=== PATIENT | male | born 1955 | race Caucasian/White ===

== ENCOUNTER 2017-06-10 17:07 | Inpatient (IN) ==
[2017-06-10] MEDS ORDERED: ALBUTEROL/IPRATROPIUM 3 ML NEB RESP TX STA (18:29)
[2017-06-10 19:32] LABS: Calcium 8.9 MG/DL (8.5-10.1); Osmolality,Calculated 278.4 MOS/KG (273-304); Potassium 2.6 MMOL/L (3.5-5.1)
[2017-06-10] MEDS ORDERED: ACETAMINOPHEN 500 MG TABLET PO STA (19:47)
[2017-06-10 19:48] LABS: Basophils # 0.1 10*3/uL (0.0-0.2); Basophils % 0.5 % (0.0-0.8); Eosinophils # 0.1 10*3/uL (0.0-0.87); Eosinophils % 0.4 % (0.00-10.9); Hematocrit 39.9 VOL% (42.0-52.0); Hemoglobin 13.9 GM/DL (14.0-18.0); Immature Granulocytes % 0.5 %; Immature Granulocytes Absolute 0.06 #; Lymphocytes % 16.9 % (21.2-54.2); Mean Corpuscular HGB Conc 34.8 GM/DL (32-36); Mean Corpuscular Hemoglobin 35 PG (27-34); Mean Corpuscular Volume 101.3 FL (87-102); Mean Platelet Volume 10.9 FL (9.6-12.0); Monocytes # 1.4 10*3/uL (0.11-0.8); Monocytes % 11.9 % (1.7-12.7); NRBC # 0.02 10*3/uL; Neutrophils # 8.4 10*3/uL (1.4-7.4); Neutrophils % 69.8 % (38.7-73.9); Platelet Count 228 T/CUMM (130-400); Red Blood Count 3.94 MC/CUMM (3.8-5.5); Red Cell Distribution Width 13.2 % (9.3-17.3); White Blood Count 12.1 T/CUMM (4-12)
[2017-06-10] MEDS ORDERED: ACETAMINOPHEN 500 MG TABLET ONE (19:49)
[2017-06-10] MEDS ORDERED: LEVOFLOXACIN INJ 750 MG in PREMIX 1 EACH IV STA (20:26)
[2017-06-10] MEDS ORDERED: LEVOFLOXACIN INJ 150 ML IV ONE (20:32)
[2017-06-10] MEDS ORDERED: ONDANSETRON 4 MG/2 ML VIAL IV PRN (20:52)
[2017-06-10] MEDS ORDERED: ACETAMINOPHEN 325 MG TABLET PO PRN (20:52)
[2017-06-10] MEDS ORDERED: ALBUTEROL 2.5 MG/3 ML NEB RESP TX PRN (20:52)
[2017-06-10] MEDS ORDERED: POTASSIUM CHLORIDE 20 MEQ TABLET PO ONE (22:00)
[2017-06-10] MEDS: methylPREDNISolone SOD SUC 40 MG/1 ML VIAL IV SCH (22:17)
[2017-06-10] MEDS: ENOXAPARIN 40 MG/0.4 ML SYRINGE SUBCUT SCH (22:19)
[2017-06-10] MEDS: BUDESONIDE/FORMOTEROL 160-4.5 INHALER 6 GM INH SCH (22:19)
[2017-06-10] MEDS: IBUPROFEN 800 MG TABLET PO PRN (23:40)
[2017-06-10] MEDS: ZALEPLON 5 MG CAPSULE PO PRN (23:40)
[2017-06-11] MEDS: ALBUTEROL/IPRATROPIUM 3 ML NEB RESP TX SCH ×4 (00:25→20:04)
[2017-06-11 05:42] LABS: Basophils % 0.3 % (0.0-0.8); Hematocrit 39.9 VOL% (42.0-52.0); Immature Granulocytes % 0.6 %; Immature Granulocytes Absolute 0.07 #; Lymphocytes # 1.2 10*3/uL (1.4-4.0); Mean Corpuscular HGB Conc 35.1 GM/DL (32-36); Mean Corpuscular Hemoglobin 35 PG (27-34); Mean Corpuscular Volume 100.8 FL (87-102); Mean Platelet Volume 10.3 FL (9.6-12.0); Monocytes # 0.4 10*3/uL (0.11-0.8); Monocytes % 3.4 % (1.7-12.7); Neutrophils # 9.3 10*3/uL (1.4-7.4); Neutrophils % 84.7 % (38.7-73.9); Platelet Count 212 T/CUMM (130-400); Red Blood Count 3.96 MC/CUMM (3.8-5.5); Red Cell Distribution Width 13.3 % (9.3-17.3)
[2017-06-11] MEDS: methylPREDNISolone SOD SUC 40 MG/1 ML VIAL IV SCH ×3 (05:50→20:45)
[2017-06-11 06:16] LABS: Calcium 8.8 MG/DL (8.5-10.1); Osmolality,Calculated 284.1 MOS/KG (273-304); Potassium 3.1 MMOL/L (3.5-5.1)
[2017-06-11] MEDS: POTASSIUM CHLORIDE 20 MEQ TABLET PO SCH ×3 (08:50→20:44)
[2017-06-11] MEDS: PANTOPRAZOLE 40 MG TABLET PO SCH (08:50)
[2017-06-11] MEDS: BUDESONIDE/FORMOTEROL 160-4.5 INHALER 6 GM INH SCH ×2 (08:50→20:44)
[2017-06-11] MEDS: IBUPROFEN 800 MG TABLET PO PRN ×2 (08:55→23:11)
[2017-06-11] MEDS: ARIPiprazole 10 MG TABLET PO SCH (14:41)
[2017-06-11] MEDS: ENOXAPARIN 40 MG/0.4 ML SYRINGE SUBCUT SCH (20:44)
[2017-06-11] MEDS ORDERED: FLUTICASONE/SALMETEROL 500-50 DISKUS 14 DOSE INH SCH (21:00)
[2017-06-11] MEDS: LEVOFLOXACIN INJ 750 MG in PREMIX 1 EACH IV SCH (21:52)
[2017-06-11] MEDS: ZALEPLON 5 MG CAPSULE PO PRN (23:11)
[2017-06-12] MEDS: ALBUTEROL/IPRATROPIUM 3 ML NEB RESP TX SCH ×4 (00:54→19:56)
[2017-06-12] MEDS: methylPREDNISolone SOD SUC 40 MG/1 ML VIAL IV SCH (04:00)
[2017-06-12] MEDS: IBUPROFEN 800 MG TABLET PO PRN ×3 (05:33→23:35)
[2017-06-12] MEDS: ARIPiprazole 10 MG TABLET PO SCH (08:22)
[2017-06-12] MEDS: POTASSIUM CHLORIDE 20 MEQ TABLET PO SCH ×3 (08:22→22:08)
[2017-06-12] MEDS: PANTOPRAZOLE 40 MG TABLET PO SCH (08:22)
[2017-06-12] MEDS: amLODIPine 5 MG TABLET PO SCH (08:22)
[2017-06-12] MEDS: FLUoxetine 20 MG CAPSULE PO SCH (08:22)
[2017-06-12] MEDS: BUDESONIDE/FORMOTEROL 160-4.5 INHALER 6 GM INH SCH ×2 (08:23→22:09)
[2017-06-12] MEDS ORDERED: REXULTI 2MG PO SCH (09:00)
[2017-06-12] MEDS ORDERED: methylPREDNISolone SOD SUC 40 MG/1 ML VIAL IV SCH (21:00)
[2017-06-12] MEDS: LEVOFLOXACIN INJ 750 MG in PREMIX 1 EACH IV SCH (22:07)
[2017-06-12] MEDS: ENOXAPARIN 40 MG/0.4 ML SYRINGE SUBCUT SCH (22:09)
[2017-06-12] MEDS: ZALEPLON 5 MG CAPSULE PO PRN (23:37)
[2017-06-13] MEDS: ALBUTEROL/IPRATROPIUM 3 ML NEB RESP TX SCH ×4 (01:06→19:26)
[2017-06-13] MEDS: DORNASE ALFA 2.5 MG/2.5 ML VIAL RESP TX SCH ×2 (07:55→19:26)
[2017-06-13] MEDS: PANTOPRAZOLE 40 MG TABLET PO SCH (08:55)
[2017-06-13] MEDS: POTASSIUM CHLORIDE 20 MEQ TABLET PO SCH ×4 (08:55→22:10)
[2017-06-13] MEDS: IBUPROFEN 800 MG TABLET PO PRN ×2 (08:55→22:14)
[2017-06-13] MEDS: FLUoxetine 20 MG CAPSULE PO SCH (08:55)
[2017-06-13] MEDS: amLODIPine 5 MG TABLET PO SCH (08:55)
[2017-06-13] MEDS: ARIPiprazole 10 MG TABLET PO SCH (08:57)
[2017-06-13] MEDS: BUDESONIDE/FORMOTEROL 160-4.5 INHALER 6 GM INH SCH ×2 (08:58→22:08)
[2017-06-13] MEDS: LISINOPRIL 10 MG TABLET PO SCH (10:16)
[2017-06-13] MEDS ORDERED: methylPREDNISolone SOD SUC 40 MG/1 ML VIAL IV SCH (21:00)
[2017-06-13] MEDS: LEVOFLOXACIN INJ 750 MG in PREMIX 1 EACH IV SCH (22:06)
[2017-06-13] MEDS: ZALEPLON 5 MG CAPSULE PO PRN (22:07)
[2017-06-13] MEDS: ENOXAPARIN 40 MG/0.4 ML SYRINGE SUBCUT SCH (22:11)
[2017-06-14] MEDS: ALBUTEROL/IPRATROPIUM 3 ML NEB RESP TX SCH ×3 (00:08→13:30)
[2017-06-14 05:54] LABS: Basophils % 0.3 % (0.0-0.8); Hematocrit 42.5 VOL% (42.0-52.0); Hemoglobin 14.8 GM/DL (14.0-18.0); Immature Granulocytes % 1.8 %; Immature Granulocytes Absolute 0.18 #; Lymphocytes # 1.3 10*3/uL (1.4-4.0); Lymphocytes % 12.9 % (21.2-54.2); Mean Corpuscular HGB Conc 34.8 GM/DL (32-36); Mean Corpuscular Hemoglobin 36 PG (27-34); Mean Corpuscular Volume 102.4 FL (87-102); Mean Platelet Volume 10.8 FL (9.6-12.0); Monocytes # 0.4 10*3/uL (0.11-0.8); Monocytes % 4.4 % (1.7-12.7); Neutrophils # 7.9 10*3/uL (1.4-7.4); Neutrophils % 80.6 % (38.7-73.9); Platelet Count 251 T/CUMM (130-400); Red Blood Count 4.15 MC/CUMM (3.8-5.5); Red Cell Distribution Width 12.9 % (9.3-17.3); White Blood Count 9.8 T/CUMM (4-12)
[2017-06-14 06:20] LABS: Calcium 8.7 MG/DL (8.5-10.1); Osmolality,Calculated 284.3 MOS/KG (273-304)
[2017-06-14] MEDS: DORNASE ALFA 2.5 MG/2.5 ML VIAL RESP TX SCH (07:04)
[2017-06-14] MEDS: amLODIPine 5 MG TABLET PO SCH (09:03)
[2017-06-14] MEDS: POTASSIUM CHLORIDE 20 MEQ TABLET PO SCH (09:03)
[2017-06-14] MEDS: ARIPiprazole 10 MG TABLET PO SCH (09:03)
[2017-06-14] MEDS: FLUoxetine 20 MG CAPSULE PO SCH (09:03)
[2017-06-14] MEDS: PANTOPRAZOLE 40 MG TABLET PO SCH (09:04)
[2017-06-14] MEDS: LISINOPRIL 10 MG TABLET PO SCH (09:04)
[2017-06-14] MEDS: IBUPROFEN 800 MG TABLET PO PRN (12:04)
[2017-06-14 12:23] VITALS: BP 142/83
== END 2017-06-14 12:55 | disposition home or self-care (01) | DRG 192 ==
LOC: N.ED 17:07 → SUATTDRO 20:52 → N.EDINP 20:52 → N.2E 21:23
PROVIDERS: ADMIT Emergency Medicine

== ENCOUNTER 2021-07-01 06:08 | Inpatient (IN) ==
[2021-07-01] MEDS ORDERED: ONDANSETRON 4 MG/2 ML VIAL IV STA (07:17)
[2021-07-01 07:37] LABS: Basophils # 0.1 10*3/uL (0.0-0.2); Basophils % 0.6 % (0.0-0.8); Eosinophils % 0.2 % (0.00-10.9); Hematocrit 43.5 VOL% (42.0-52.0); Hemoglobin 14.3 GM/DL (14.0-18.0); Immature Granulocytes % 0.7 %; Immature Granulocytes Absolute 0.08 #; Lymphocytes # 1.2 10*3/uL (1.4-4.0); Lymphocytes % 10.3 % (21.2-54.2); Mean Corpuscular HGB Conc 32.9 GM/DL (32-36); Mean Corpuscular Volume 104.8 FL (87-102); Mean Platelet Volume 11.3 FL (9.6-12.0); Neutrophils % 81.2 % (38.7-73.9); Platelet Count 219 T/CUMM (130-400); Red Blood Count 4.15 MC/CUMM (3.8-5.5); Red Cell Distribution Width 12.7 % (9.3-17.3); White Blood Count 11.7 T/CUMM (4-12)
[2021-07-01 07:42] LABS: Alanine Aminotransferase 16 U/L (16-61); Alkaline Phosphatase 114 U/L (45-117); Aspartate Amino Transferase 27 U/L (0-37); Blood Urea Nitrogen 25 MG/DL (7-18); Calcium 9.5 MG/DL (8.5-10.1); Carbon Dioxide 22 MMOL/L (21-32); Estimated Glom Filtration Rate 55 ML/MIN; Glucose 154 MG/DL (74-106); Osmolality,Calculated 283.5 MOS/KG (273-304); Potassium 4.1 MMOL/L (3.5-5.1); Sodium 139 MMOL/L (136-145); Total Protein 7.9 G/DL (6.4-8.2)
[2021-07-01] MEDS ORDERED: SODIUM CHLORIDE 0.9% 1,000 ML IV STA (08:00)
[2021-07-01] MEDS ORDERED: LEVOFLOXACIN INJ 500 MG/100 ML PREMIX IV ONE (08:00)
[2021-07-01 08:40] LABS: Bacteria,Urine Occasional /HPF (Few); Hyaline Casts,Urine 3 /LPF (0-3); Mucus,Urine Occasional /LPF (Occasional); RBC,Urine 305 /HPF (0-4); Squamous Epithelial Cell,Urine Occasional /HPF (0-10)
[2021-07-01 08:43] LABS: Glucose,Urine (UA) Negative (Negative); Ketones,Urine Trace mg/dL (Negative); Nitrite,Urine Negative (Negative); Protein,Urine 100 mg/dL (Negative); Urine Appearance Clear (Clear); Urine Color Yellow (Yellow); Urine Specific Gravity > 1.030 (1.001-1.035); Urine pH 5.5 (4.5-8.0)
[2021-07-01 08:44] LABS: Bilirubin,Urine Small mg/dL (Negative); Blood, Urine Large mg/dL (Negative); Urine Urobilinogen 0.2 eU/dL (<2.0)
[2021-07-01] MEDS ORDERED: ONDANSETRON 4 MG/2 ML VIAL IV PRN (10:01)
[2021-07-01] MEDS ORDERED: GLUCAGON 1 MG VIAL IM PRN (10:01)
[2021-07-01] MEDS ORDERED: DEXTROSE 10% 250 ML BAG IV PRN (10:46)
[2021-07-01] MEDS ORDERED: cefTRIAXone 2,000 MG in SODIUM CHLORIDE 0.9% 100 ML IV SCH (14:00)
[2021-07-01] MEDS ORDERED: MORPHINE 4 MG/1 ML VIAL IV ONE (16:00)
[2021-07-01] MEDS: ENOXAPARIN 40 MG/0.4 ML SYRINGE SUBCUT SCH (16:30)
[2021-07-01] MEDS: SODIUM CHLORIDE 0.9% 1,000 ML IV SCH (16:58)
[2021-07-01] MEDS: metroNIDAZOLE INJ 500 MG/100 ML PREMIX IV SCH ×2 (16:58→21:25)
[2021-07-02] MEDS: SODIUM CHLORIDE 0.9% 1,000 ML IV SCH ×2 (02:00→21:53)
[2021-07-02] MEDS: metroNIDAZOLE INJ 500 MG/100 ML PREMIX IV SCH ×3 (04:59→21:55)
[2021-07-02 05:04] LABS: Basophils % 0.7 % (0.0-0.8); Eosinophils # 0.1 10*3/uL (0.0-0.87); Eosinophils % 1.4 % (0.00-10.9); Hemoglobin 12.8 GM/DL (14.0-18.0); Immature Granulocytes % 0.2 %; Immature Granulocytes Absolute 0.01 #; Lymphocytes # 1.4 10*3/uL (1.4-4.0); Mean Corpuscular HGB Conc 32.8 GM/DL (32-36); Mean Platelet Volume 10.5 FL (9.6-12.0); Monocytes % 16.8 % (1.7-12.7); Neutrophils % 56.9 % (38.7-73.9); Platelet Count 166 T/CUMM (130-400); Red Blood Count 3.68 MC/CUMM (3.8-5.5); Red Cell Distribution Width 12.8 % (9.3-17.3); White Blood Count 5.7 T/CUMM (4-12)
[2021-07-02 05:25] LABS: Calcium 8.4 MG/DL (8.5-10.1); Osmolality,Calculated 290.8 MOS/KG (273-304); Potassium 3.8 MMOL/L (3.5-5.1)
[2021-07-02 06:04] LABS: Atypical Lymphocytes Few; Band Neutrophils 2 % (0-10); Eosinophils 1 % (0-10); Lymphocytes 32 % (20-55); Segmented Neutrophils 55 % (50-85); Total Cells Counted 100
[2021-07-02 06:05] LABS: Macrocytosis Slight; Polychromasia Slight
[2021-07-02 06:06] LABS: Platelet Estimate Adequate
[2021-07-02] MEDS: LEVOFLOXACIN INJ 500 MG/100 ML PREMIX IV SCH (08:54)
[2021-07-02] MEDS: PANTOPRAZOLE 40 MG VIAL IV SCH (08:54)
[2021-07-02] MEDS: ENOXAPARIN 40 MG/0.4 ML SYRINGE SUBCUT SCH (11:40)
[2021-07-02] MEDS ORDERED: ACETAMINOPHEN 325 MG TABLET PO PRN ×2 (16:10→16:11)
[2021-07-02] MEDS ORDERED: ALBUTEROL 2.5 MG/3 ML NEB RESP TX PRN (17:16)
[2021-07-02] MEDS: BUDESONIDE/FORMOTEROL 160-4.5 INHALER 6 GM INH SCH ×2 (21:52→21:58)
[2021-07-02] MEDS: rOPINIRole 1 MG TABLET PO SCH (21:53)
[2021-07-03] MEDS: metroNIDAZOLE INJ 500 MG/100 ML PREMIX IV SCH ×2 (05:48→13:15)
[2021-07-03 07:11] LABS: Basophils # 0.1 10*3/uL (0.0-0.2); Basophils % 1.1 % (0.0-0.8); Eosinophils # 0.2 10*3/uL (0.0-0.87); Eosinophils % 4.5 % (0.00-10.9); Hematocrit 36.6 VOL% (42.0-52.0); Immature Granulocytes % 0.2 %; Immature Granulocytes Absolute 0.01 #; Lymphocytes # 1.6 10*3/uL (1.4-4.0); Lymphocytes % 29.5 % (21.2-54.2); Mean Corpuscular HGB Conc 32.8 GM/DL (32-36); Mean Corpuscular Volume 104.6 FL (87-102); Mean Platelet Volume 10.8 FL (9.6-12.0); Monocytes % 13.6 % (1.7-12.7); Neutrophils % 51.1 % (38.7-73.9); Platelet Count 155 T/CUMM (130-400); Red Cell Distribution Width 12.6 % (9.3-17.3); White Blood Count 5.4 T/CUMM (4-12)
[2021-07-03 07:29] LABS: Calcium 8.3 MG/DL (8.5-10.1); Osmolality,Calculated 292.4 MOS/KG (273-304); Potassium 3.4 MMOL/L (3.5-5.1)
[2021-07-03 07:42] LABS: Anisocytosis 1+; Band Neutrophils 2 % (0-10); Eosinophils 4 % (0-10); Lymphocytes 28 % (20-55); Macrocytosis 1+; Platelet Estimate Normal; Segmented Neutrophils 51 % (50-85); Total Cells Counted 100
[2021-07-03] MEDS ORDERED: ARIPiprazole 5 MG TABLET PO SCH (09:00)
[2021-07-03] MEDS ORDERED: CETIRIZINE 10 MG TABLET PO SCH (09:00)
[2021-07-03] MEDS: PANTOPRAZOLE 40 MG VIAL IV SCH (09:00)
[2021-07-03] MEDS ORDERED: MONTELUKAST 10 MG TABLET PO SCH (09:00)
[2021-07-03] MEDS ORDERED: MAGNESIUM OXIDE 400 MG TABLET PO SCH (09:00)
[2021-07-03] MEDS ORDERED: POTASSIUM CHLORIDE 20 MEQ TABLET PO ONE (09:00)
[2021-07-03] MEDS: CARBIDOPA/LEVODOPA 25-100 MG TABLET PO SCH ×2 (09:01→13:15)
[2021-07-03] MEDS: rOPINIRole 1 MG TABLET PO SCH (09:01)
[2021-07-03] MEDS: LEVOFLOXACIN INJ 500 MG/100 ML PREMIX IV SCH (09:11)
[2021-07-03] MEDS: BUDESONIDE/FORMOTEROL 160-4.5 INHALER 6 GM INH SCH (09:11)
[2021-07-03] MEDS: ENOXAPARIN 40 MG/0.4 ML SYRINGE SUBCUT SCH (10:07)
[2021-07-03 12:41] VITALS: BP 128/75
[2021-07-04] MEDS ORDERED: FLUoxetine 20 MG CAPSULE PO SCH (09:00)
[2021-07-04] MEDS ORDERED: ROSUVASTATIN 20 MG TABLET PO SCH (09:00)
== END 2021-07-03 15:21 | disposition home or self-care (01) | DRG 389 ==
LOC: N.ED 06:08 → N.EDINP 10:40 → SUATTDRO 10:40 → N.5E 17:34
PROVIDERS: ADMIT Emergency Medicine; ATTEND Hospitalist